=== PATIENT | male | born 1995 | race Caucasian/White ===

== ENCOUNTER 2020-07-13 13:03 | Emergency (ER) | payer BC, OTHER ==
[2020-07-13] MEDS ORDERED: ROBAXIN-750750 MG PO (16:21)
[2020-07-13] MEDS ORDERED: IBU800 MG PO (16:21)
== END 2020-07-13 16:25 | disposition home or self-care (01) ==
LOC: ER1 13:03
DX: S16.1XXA Strain of muscle, fascia and tendon at neck level, initial encounter (principal); S39.012A Strain of muscle, fascia and tendon of lower back, initial encounter; V47.5XXA Car driver injured in collision with fixed or stationary object in traffic accident, initial encounter; Y92.410 Unspecified street and highway as the place of occurrence of the external cause
CPT/HCPCS: 72125; 72128; 72131; 96372; 99283; J1885

== ENCOUNTER → 2021-06-25 | Outpatient (CLI) | payer OTHER ==
[~2021-06-25] MED LIST: IBU800 MG PO; ROBAXIN-750750 MG PO
== END ==
LOC: KOH-I 09:37
DX: M54.50 Low back pain, unspecified (principal)
CPT/HCPCS: 72100

== ENCOUNTER 2021-07-19 20:21 | Emergency (ER) | payer OTHER ==
[2021-07-20] MEDS ORDERED: PREDNISONE 20 M20 MG PO (21:05)
== END 2021-07-20 00:13 | disposition left against medical advice (07) ==
LOC: ER1 20:21
DX: M79.671 Pain in right foot (principal)
CPT/HCPCS: 73630; 99281

== ENCOUNTER 2021-07-20 19:06 | Emergency (ER) | payer OTHER ==
[2021-07-20 19:46] LABS: HEMOGLOBIN 15.4 gm/dl (14.0-17.5); RED BLOOD COUNT 5.02 M/UL (4.20-5.50); WHITE BLOOD COUNT 7.3 K/UL (4.5-11.0)
[2021-07-20 20:23] LABS: BUN/CREATININE RATIO 11 (0-10)
[2021-07-20] MEDS ORDERED: PREDNISONE 20 M20 MG PO (21:05)
== END 2021-07-20 21:28 | disposition home or self-care (01) ==
LOC: ER1 19:06
PROVIDERS: Student in an Organized Health Care Education/Training Program
DX: M10.9 Gout, unspecified (principal); M79.671 Pain in right foot
CPT/HCPCS: 73610; 73630; 80048; 84550; 85025; 99283